=== PATIENT | female | born 1965 | race Caucasian/White ===

== ENCOUNTER 2016-05-24 15:19 | Observation (INO) | payer BC ==
[~2016-05-24] VITALS: Ht 170.2 cm; Wt 79.5 kg
[2016-05-24 15:25] VITALS: BP 112/78
--- NOTE | 2016-05-24 15:25 | NUR ---
Patient admitted to room 305 from 's office. She reports headache and general ill feeling for about 2-3 weeks prior to admit and also nausea, vomiting, and diarrhea X 2 days.
[2016-05-24] MEDS ORDERED: MAGNESIUM HYDROXIDE 80MG/ML (MILK OF MAGNESIA) 30 ML UDC PO PRN (15:35)
[2016-05-24] MEDS ORDERED: DOCUSATE SODIUM 100 MG (COLACE) CAP PO PRN (15:35)
[2016-05-24] MEDS ORDERED: MAG HYDROX/AL HYDROX/SIMETH 200-200-20/5 ML (MAG-AL PLUS) 30 ML UDC PO PRN (15:35)
[2016-05-24] MEDS ORDERED: CALCIUM CARBONATE CHEWABLE 300 MG (TUMS) TABLET PO PRN (15:35)
[2016-05-24] MEDS ORDERED: POLYETHYLENE GLYCOL 17 GM (MIRALAX) PACKET PO PRN (15:35)
--- NOTE | 2016-05-24 16:00 | NUR ---
To radiology for chest x-ray.
--- NOTE | 2016-05-24 16:20 | NUR ---
Back on the floor.
--- NOTE | 2016-05-24 16:27 | NUR ---
Telemetry= SR with a rate in the 90's.
[2016-05-24] MEDS ORDERED: SODIUM CHLORIDE FLUSH 10 ML ONE (16:28)
[2016-05-24] MEDS: ONDANSETRON 4 MG (ZOFRAN) ORAL DISSOLVE TAB PO PRN ×2 (16:30→21:05)
--- NOTE | 2016-05-24 16:30 | NUR ---
Accessed right glenna cath with a 19gauge 3/4 inch butler needle on the first attempt. Blood return was good.
[2016-05-24] MEDS ORDERED: NS FLUSH 3 ML PRN IV (16:35)
[2016-05-24] MEDS ORDERED: NS FLUSH 10 ML PRN IV (16:35)
[2016-05-24] MEDS: ACETAMINOPHEN 325 MG TAB (TYLENOL) PO PRN ×2 (17:19→21:24)
[2016-05-24] MEDS: PROMETHAZINE HCL INJ 12.5 MG in SODIUM CHLORIDE 25 ML IV PRN (18:00)
--- NOTE | 2016-05-24 18:00 | NUR ---
Gave Promethazine 12.5 mg. for vomiting. The patient vomited about 50cc's of water and the two tylenol she took for headache. Supper tray was held as well.
[2016-05-24 20:01] VITALS: BP 115/80
--- NOTE | 2016-05-24 21:05 | NUR ---
Zofran given for nausea; will administer ordered PO meds after Zofran takes effect. Pt. resting on right side; resp are even and unlabored on room air; states generalized discomfort plus headache. Call light and H2O within reach.
[2016-05-24] MEDS: BACLOFEN 10 MG (LIORESAL) TAB PO SCH (21:23)
[2016-05-24] MEDS: traZODone 100 MG (DESYREL) TABLET PO SCH (21:23)
[2016-05-24] MEDS: ATORVASTATIN 40 MG (LIPITOR) TABLET PO SCH (21:24)
--- NOTE | 2016-05-24 21:24 | NUR ---
Tylenol 650 mg PO given for headache; last administration of Tylenol was lost in emesis-jase Bowen RN & pt. statement. Pt. takes all remaining PO meds carefully; no problems thus far. Pt. encouraged to keep head of bed up for awhile after taking PO meds. Pt. pleasant & cooperative; call light and H2O within reach.
[2016-05-24 21:25] LABS: BILIRUBIN,URINE Negative (Negative); COLOR,URINE Yellow; GLUCOSE, URINE (UA) Negative (Negative); LEUKOCYTE ESTERASE ,URINE 2+ (Negative); UROBILINOGEN,URINE 0.2 mg/dL (0.2-1.0)
[2016-05-24 21:34] LABS: CLARITY,URINE Cloudy
[2016-05-24 21:36] LABS: URINE CENTRIFUGED VOLUME 12 mL
[2016-05-25 00:30] VITALS: BP 120/69
[2016-05-25] MEDS: PROMETHAZINE HCL INJ 12.5 MG in SODIUM CHLORIDE 25 ML IV PRN ×2 (00:38→11:20)
--- NOTE | 2016-05-25 00:40 | NUR ---
Phenergan 12.5 mg IV given for nausea.
--- NOTE | 2016-05-25 01:45 | NUR ---
Pt. resting quietly; appears to be in no distress. Call light and H2O within reach.
[2016-05-25 04:24] VITALS: BP 93/58
--- NOTE | 2016-05-25 06:05 | NUR ---
NS fully infused; portacath locked. Pt. up to ambulate to and fro bathroom with stand by assist; pt. applies left leg brace and shoes with minimal assist. Pt. has void as well as bowel movement/liquid. Stool sample taken to lab. Pt. noted to be very independent and proactive in self care. Pt. states she still has "a little" of a headache; denies need for Tylenol at this time. Pt. denies nausea currently. Telemetry has reflected sinus rhythm. Pt. very pleasant and cooperative. Call light and H2O within reach.
[2016-05-25 06:36] LABS: BASOPHILS % (AUTO) 0 % (0-2); EOSINOPHILS % (AUTO) 1 % (0-4); LYMPHOCYTES # (AUTO) 1.3 X10^3; MEAN CORPUSCULAR HGB CONC 35.3 g/dL (31.0-37.0); MEAN CORPUSCULAR VOLUME 89 FL (80-100); MEAN PLATELET VOLUME 9.5 FL (6.0-9.5); MONOCYTES # (AUTO) 0.3 X10^3; MONOCYTES % (AUTO) 11 % (3-11); NEUTROPHILS # (AUTO) 1.4 X10^3; NEUTROPHILS % (AUTO) 46 % (51-67); PLATELET COUNT 156 10^3uL (150-450); WHITE BLOOD COUNT 3.14 10^3uL (4.0-11.0)
[2016-05-25 06:37] LABS: MEAN CORPUSCULAR HEMOGLOBIN 31.5 PG (26.0-34.0)
[2016-05-25 07:05] LABS: ALBUMIN 3.6 g/dL (3.4-5.0); ANION GAP 14.1 MEQ/L (3-15)
[2016-05-25 08:10] VITALS: BP 91/58
[2016-05-25] MEDS: NS FLUSH 3 ML DAILY IV SCH (09:00)
[2016-05-25] MEDS: ONDANSETRON 4 MG (ZOFRAN) ORAL DISSOLVE TAB PO PRN ×3 (09:36→21:23)
[2016-05-25] MEDS: ENOXAPARIN 40 MG/0.4 ML (LOVENOX) SYR SC SCH (09:58)
[2016-05-25] MEDS: lisINopril 10 MG (PRINIVIL) TABLET PO SCH (09:58)
[2016-05-25] MEDS: ASPIRIN 81 MG CHEW (CHILDREN'S ASA) PO SCH (09:58)
[2016-05-25] MEDS: CEFDINIR 300 MG (OMNICEF) CAPSULE PO SCH ×2 (09:58→21:50)
[2016-05-25] MEDS: ACETAMINOPHEN 325 MG TAB (TYLENOL) PO PRN ×3 (09:58→23:42)
[2016-05-25 11:34] VITALS: BP 95/61
[2016-05-25] MEDS: IBUPROFEN 600 MG (MOTRIN) TAB PO PRN ×2 (13:30→19:51)
--- NOTE | 2016-05-25 15:02 | NUR ---
Medication reconcilation completed from external history and direct patient interview conducted by Santi Saavedra customer sales service manager.
[2016-05-25 16:13] VITALS: BP 66/44
[2016-05-25 16:19] VITALS: BP 90/64
--- NOTE | 2016-05-25 19:00 | NUR ---
Patient has continued to have intermittent episodes of nausea throughout the day. One episode of vomiting- about 50 cc's of clear water. Ibuprofen and tylenol have been alternated for headache pain- this has improved headache relief but pain has not yet subsided completely.
--- NOTE | 2016-05-25 19:52 | NUR ---
Motrin 600 mg PO given for headache rated "6"; general discomfort. Pt. resting on left side; resp are even and unlabored on room air; several items from clear liquid tray remain at bedside as pt. plans to eat later, too. Call light and H2O within reach.
--- NOTE | 2016-05-25 21:24 | NUR ---
Zofran given for nausea; will administer scheduled PO medications in aprx. 30 minutes for effectiveness.
[2016-05-25] MEDS: ATORVASTATIN 40 MG (LIPITOR) TABLET PO SCH (21:50)
[2016-05-25] MEDS: traZODone 100 MG (DESYREL) TABLET PO SCH (21:50)
[2016-05-25] MEDS: BACLOFEN 10 MG (LIORESAL) TAB PO SCH (21:51)
--- NOTE | 2016-05-25 23:42 | NUR ---
Tylenol 650 mg PO given for headache rated "6". Room temp adjusted for comfort. Pt. states she is "just not feeling good yet". Call light and H2O within reach.
[2016-05-26 00:03] VITALS: BP 108/65
[2016-05-26] MEDS: ONDANSETRON 4 MG (ZOFRAN) ORAL DISSOLVE TAB PO PRN ×2 (02:45→08:59)
--- NOTE | 2016-05-26 02:46 | NUR ---
Zofran oral dissolve given for nausea.
[2016-05-26] MEDS: PROMETHAZINE HCL INJ 12.5 MG in SODIUM CHLORIDE 25 ML IV PRN (03:51)
--- NOTE | 2016-05-26 03:52 | NUR ---
Phenergan IV given for nausea unresolved by Zofran. Pt. reports "vomiting several times"; this nurse notes scant to 50 cc's clear liquid in emesis bag. Pt. denies need of Motrin at this time; "maybe later".
[2016-05-26] MEDS ORDERED: NS 1000 ML IV BAG IV ONE (04:15)
--- NOTE | 2016-05-26 05:50 | NUR ---
Pt. resting quietly with eyes closed; resp are even and unlabored on room air; appears to be in no distress. Call light and H2O within reach.
[2016-05-26] MEDS: NS FLUSH 3 ML DAILY IV SCH (07:46)
[2016-05-26 08:14] VITALS: BP 81/50
[2016-05-26] MEDS: lisINopril 10 MG (PRINIVIL) TABLET PO SCH (09:00)
[2016-05-26] MEDS ORDERED: NS 100 ML (IVPB) BAG INJ PRN (09:00)
[2016-05-26] MEDS: ENOXAPARIN 40 MG/0.4 ML (LOVENOX) SYR SC SCH (09:24)
[2016-05-26] MEDS: ASPIRIN 81 MG CHEW (CHILDREN'S ASA) PO SCH (09:24)
[2016-05-26] MEDS: CEFDINIR 300 MG (OMNICEF) CAPSULE PO SCH (09:24)
[2016-05-26] MEDS: IBUPROFEN 600 MG (MOTRIN) TAB PO PRN (09:25)
--- NOTE | 2016-05-26 11:50 | NUR ---
Reviewed discharge medications with patient. No additional questions or concerns. Patient verbalized understanding of medications. conducted by Parker RichmondD Candidate 2017.
--- NOTE | 2016-05-26 12:45 | NUR ---
Patient was able to eat about 25% of regular diet and she has been sipping liquids throughout the morning without vomiting.
--- NOTE | 2016-05-26 13:00 | NUR ---
Gave the patient discharge instructions and [facility] Educated the patient on the importance of follow up with PCP regarding BP medications. Patient demonstrated verbal understanding of the instructions.
--- NOTE | 2016-05-26 13:20 | NUR ---
Patient dismissed per wheelchair accompanied by a BRUSH LOADER AND HANDLE ATTACHER.
== END 2016-05-26 13:20 | disposition home or self-care (01) ==
LOC: MED/SURG 15:19
PROVIDERS: ADMIT Internal Medicine; ATTEND Internal Medicine
DX: K52.9 Noninfective gastroenteritis and colitis, unspecified (principal); N39.0 Urinary tract infection, site not specified; E86.0 Dehydration; R00.0 Tachycardia, unspecified; R51 Headache; I69.354 Hemiplegia and hemiparesis following cerebral infarction affecting left non-dominant side; I10 Essential (primary) hypertension; E78.5 Hyperlipidemia, unspecified; F90.9 Attention-deficit hyperactivity disorder, unspecified type; Z86.718 Personal history of other venous thrombosis and embolism
CPT/HCPCS: 36415; 71020; 80069; 81003; 81015; 83735; 84443; 84484; 85025; 86140; 87088; 87507; 96361; 96365; 96372; 96376; 97110; 97161; 99218; J1642; J1650; J2550; J7030; 87077; 87186

== ENCOUNTER → 2016-05-24 | Outpatient (REF) | payer BC ==
[~2016-05-24] MED LIST: ACYC800T PO; ASP81CT PO; ATOR40TA59 PO; BACL20TA PO; CEFD300C PO; DEXT10TA12 PO; GBPN100C PO; HYDR-33 PO; HYDR-3702 PO; HYDR-3811 PO; LISD50CA3 PO; LISD60CA PO; LSNP10T PO; METH4TAB27 PO; MINO100T3 PO; MINO75CA PO; NITR100C3 PO; ONDA4TAB11 PO; ONDAN4ODT PO; PRED20TA PO; PRM25T PO; SENN1TAB PO; TRAZ100T92 PO
== END ==
LOC: LAB 14:03
PROVIDERS: ATTEND Family Medicine
DX: I10 Essential (primary) hypertension (principal); R07.89 Other chest pain; R00.0 Tachycardia, unspecified
CPT/HCPCS: 82553; 84484; 85379